=== PATIENT | male | born 1955 | race Caucasian/White ===

== ENCOUNTER 2023-01-17 14:32 | Outpatient (REF) | payer MEDICARE, SELFPAY ==
[2023-01-17 15:52] LABS: Influenza A PCR NEGATIVE (Negative); Influenza B PCR NEGATIVE (Negative); Resp Syncy Virus RNA Qual PCR NEGATIVE (Negative); SARS COV2 PCR INHOUSE POSITIVE (Negative)
== END 2023-01-17 14:33 | disposition home or self-care (01) ==
LOC: HO.LNP 14:32
PROVIDERS: Visit Provider Nurse Practitioner Family
DX: Z13.89 Encounter for screening for other disorder (principal)
CPT/HCPCS: 0241U

== ENCOUNTER 2023-01-31 10:54 | Outpatient (REF) | payer MEDICARE, SELFPAY | END 2023-01-31 10:55 | disposition home or self-care (01) | LOC: HO.LAB 10:54 | PROVIDERS: Visit Provider Nurse Practitioner Family | DX: Z20.822 Contact with and (suspected) exposure to COVID-19 (principal); Z86.16 Personal history of COVID-19 | CPT/HCPCS: 0241U ==

== ENCOUNTER 2023-10-08 11:05 | Outpatient (AMB) | payer MEDICARE, SELFPAY ==
--- NOTE | 2023-10-08 11:30 | MHC.OFFWIV ---
Intake Vital Signs 10/08/23 11:31 Weight 191 lb 6 oz BP 120/90 H Blood Pressure Location Lt brachial Position Sitting Pulse 84 Pulse Source Pulse Oximeter Temp 97.8 F Pulse Oximetry (%) 98 Oxygen Delivery Method Room Air Intake Visit Reasons: EP congestion runny nose cough 1wk (lobby) Intake Note: Patient here for nasal congestion, dry cough, body aches and slight chills which has been present for about 1 week and has tried OTC meds which did not help. Patient Tobacco Use Status: Never used Tobacco Allergies sulfur drugs Allergy (Unknown, Uncoded 10/08/23 11:33) unknown Do you need a note to return to daycare/school/sports/work: No HPI HPI Comments History of Present Illness Details Patient presents to the walk in for 1 week cough, congestion denies known sick contacts Denies fever, chest pain, shortness of breath, palpitations, syncope, weakness Denies headache, ear pain, sore throat. Has been taking OTC medications with minimal improvement. History of lung CA with right lobectomy approx 7years ago. [facility] Social History Patient Tobacco Use Status: Never used Tobacco Review of Systems Const All systems reviewed & are unremarkable except as noted in HPI and below Physical Exam Vital Signs: Last Vital Signs Temp 97.8 F 10/08/23 11:31 Pulse 84 10/08/23 11:31 BP 120/90 H 10/08/23 11:31 Pulse Ox 98 10/08/23 11:31 Oxygen Delivery Method Room Air 10/08/23 11:31 General: awake, alert, oriented. Answers questions appropriately. Fully engaged in examination. Skin: warm, dry, intact HEENT: TMs intact bilaterally, no redness. Posterior pharynx without erythema or exudate. Sclera without icterus or injection. Cardiac: External chest normal in appearance. Respiratory: + congested cough. LSCTAB. lobectomy scar noted right mid back Abdomen: without gross distension. Neurological: Oriented to person, place, time and situation. Thought process intact. Psychiatric: Appropriate mood and affect. Good judgment and insight. Assessment & Plan Assessment & Plan (1) Bronchitis: Code(s): J40 - Bronchitis, not specified as acute or chronic Plan Z-Richard as directed Prednisone 20 mg p.o. daily x5 days Benzonatate 100mg po bid as needed Rest, drink plenty of fluids, tylenol or motrin as needed. All questions and concerns were answered, patient agrees to the plan Follow up with pcp or in clinic for any new or worsening symptoms. Go to ER for shortness of breath, chest pain, palpitations, weakness, dizziness. Medications: New azithromycin For 250 mg dose pack: take 500 mg today (day 1), then 250 mg for 4 days (days 2-5) PO 6 tabs 0RF benzonatate 100 mg PO BID PRN 20 caps 0RF cough prednisone 20 mg PO DAILY 5 days 5 tabs 0RF Coding Level of Care Code Est Pt Level 3 (10204) Diagnoses Bronchitis J40
[2023-10-08 11:31] VITALS: BP 120/90; PULSE 84; TEMP 36.6; O2SAT 98
== END 2023-10-08 14:45 | disposition home or self-care (01) ==
PROVIDERS: PCP Nurse Practitioner Family; Visit Provider Registered Nurse Emergency
DX: J40 Bronchitis, not specified as acute or chronic (principal)
CPT/HCPCS: 99213

== ENCOUNTER 2024-01-23 08:15 | Outpatient (AMB) | payer MEDICARE, SELFPAY ==
[2024-01-23 08:17] VITALS: BP 130/70; PULSE 93; TEMP 37; O2SAT 96; BMI 24.8
--- NOTE | 2024-01-23 08:17 | MHC.OFFWIV ---
Intake Vital Signs 01/23/24 08:17 Height 5 ft 10 in Weight 173 lb BMI 24.8 BP 130/70 Blood Pressure Location Lt brachial Position Sitting Pulse 93 Pulse Source Pulse Oximeter Temp 98.6 F Temp Source Temporal Artery Scan Pulse Oximetry (%) 96 Intake Visit Reasons: EP cough congestion Intake Note: pt is here for cough with congestion Patient Tobacco Use Status: Never used Tobacco Allergies sulfur drugs Allergy (Unknown, Uncoded 01/23/24 08:17) unknown Do you need a note to return to daycare/school/sports/work: No HPI EP cough congestion HPI Details 68-year-old male patient presents today with a 2 week history of productive cough and sinus congestion/pressure. He states this started as allergy-type symptoms and nasal congestion, and has since progressed to a persistent, productive cough. He continues to have maxillary sinus pressure. He denies any fever, chills. Denies exposure to sick contacts. [facility] Social History Patient Tobacco Use Status: Never used Tobacco Review of Systems Const All systems reviewed & are unremarkable except as noted in HPI and below Physical Exam Vital Signs: Last Vital Signs Temp 98.6 F 01/23/24 08:17 Pulse 93 01/23/24 08:17 BP 130/70 01/23/24 08:17 Pulse Ox 96 01/23/24 08:17 BMI result Body Mass Index 24.8 Const General: cooperative and no acute distress HEENT Head: Yes normal to inspection Ears: hearing grossly normal bilaterally General nose exam: Normal external nose present and Nasal discharge present mucoid Face and sinus: Yes sinus tenderness (b/l maxillary) Mouth: Normal oral and palatal mucosa present Throat: Yes posterior oropharynx abnormal (mild erythema) Neck Neck: Yes no lymphadenopathy Resp Effort & Inspection: Actively coughing Quality: productive Auscultation: rhonchi upper bilaterally Cardio Jugular venous distension: no JVD Palpation: normal PMI Rate: regular rate Rhythm: regular rhythm Skin General skin exam: no rashes or lesions noted Extrem General: Yes capillary refill normal and Yes no clubbing, cyanosis or edema Psych Appearance: grossly normal Mental Status: mental status grossly normal Speech and movement: Normal speech and movement present Assessment & Plan Assessment & Plan (1) Bronchitis: Code(s): J40 - Bronchitis, not specified as acute or chronic Plan: Will start on antibiotic and benzonatate. Reviewed indications, use, possible side effects of medication. Encouraged increase in water and healthy food/vitamin intake. If he does not improve with treatment, or if symptoms worsen/new symptoms develop, he can return to the clinic for further evaluation. He verbalizes understanding and agrees to plan. Medications: New doxycycline hyclate Take one capsule twice a day for 7 days. 100 mg PO BID 7 days 14 caps 0RF J40 - Bronchitis, not specified as acute or chronic benzonatate Take one capsule up to twice a day as needed for cough. 100 mg PO BID 7 days PRN 14 caps 0RF cough R05.9 - Cough, unspecified Coding Level of Care Code Est Pt Level 4 (15577) Diagnoses Bronchitis J40
== END 2024-01-23 09:09 | disposition home or self-care (01) ==
PROVIDERS: PCP Nurse Practitioner Family; Visit Provider Nurse Practitioner Family
DX: J40 Bronchitis, not specified as acute or chronic (principal)
CPT/HCPCS: 99214